=== PATIENT | male | born 1965 | race Two or more races ===

== ENCOUNTER 2017-09-06 21:10 | Emergency (ER) | payer OTHER ==
[~2017-09-06] VITALS: Ht 167.6 cm; Wt 84.8 kg
[2017-09-06 21:43] VITALS: BP 154/85
[2017-09-06] MEDS ORDERED: Tetracaine 0.5% Opth 4ml Soln ONE (21:50)
[2017-09-06] MEDS ORDERED: Fluorescein Strips LEFT EYE ONE (22:00)
[2017-09-06] MEDS ORDERED: Tetracaine 0.5% Opth 4ml Soln RIGHT EYE ONE (22:00)
[2017-09-06] MEDS ORDERED: Ketorolac 30mg Inj IM ONE (22:30)
[2017-09-07] MEDS ORDERED: ONDANSETRON ODT4 MG BC (00:48)
[2017-09-07] MEDS ORDERED: FIORINAL 50-321 EACH PO (00:48)
[2017-09-07 01:04] VITALS: BP 152/90
[2017-09-07 01:05] VITALS: BP 154/85
--- NOTE | 2017-09-07 05:45 | Emergency Room Report ---
History of Present Illness General Chief Complaint: Eye Problems Source: Patient Present Illness HPI 52-year-old male presents ED complaining of pain behind the left eye 3 days. Pain is throbbing, 8 out of 10, nonradiating. Notes blurry vision. Denies neck stiffness. Denies fevers or chills. Admits to nausea and vomiting. Son at bedside states that patient had similar episode of pain in March. Resolved on its own. Was seen by eye doctor stated that everything was okay. Patient was seen at urgent care earlier today was recommended to have CAT scan. No other aggravating relieving factors. Denies any other associated symptoms Allergies: Coded Allergies: No Known Allergies (Unverified , 09/06/17) Patient History Past Medical History: DM Past Surgical History: none Pertinent Family History: none Social History: Denies: smoking, alcohol use, drug use Immunizations: UTD Reviewed Nursing Documentation: PMH: Agreed; PSxH: Agreed Nursing Documentation-PMH Hx Diabetes: Yes Review of Systems All Other Systems: negative except mentioned in HPI Physical Exam Vital Signs Date Time Temp Pulse Resp B/P (MAP) Pulse Ox O2 Delivery O2 Flow Rate FiO2 09/06/17 21:21 98.6 96 18 154/85 98 Room Air 98.6 Sp02 EP Interpretation: reviewed, normal General Appearance: no apparent distress, alert, GCS 15, non-toxic Head: normocephalic, atraumatic Eyes: bilateral eye normal inspection, bilateral eye PERRL, bilateral eye visual acuity - 20/50 ENT: hearing grossly normal, normal pharynx, no angioedema, normal voice Neck: full range of motion, supple/symm/no masses Respiratory: chest non-tender, lungs clear, normal breath sounds, speaking full sentences Cardiovascular #1: regular rate, rhythm, no edema Cardiovascular #2: 2+ carotid (R), 2+ carotid (L), 2+ radial (R), 2+ radial (L) , 2+ dorsalis pedis (R), 2+ dorsalis pedis (L) Gastrointestinal: normal bowel sounds, non tender, soft, non-distended, no guarding, no rebound Rectal: deferred Genitourinary: normal inspection, no CVA tenderness Musculoskeletal: back normal, gait/station normal, normal range of motion, non- tender Neurologic: alert, oriented x3, responsive, negative restorer III-XII nml as tested, motor strength/tone normal, sensory intact, speech normal Psychiatric: judgement/insight normal, memory normal, mood/affect normal, no suicidal/homicidal ideation Reflexes: 3+ bicep (R), 3+ bicep (L), 3+ tricep (R), 3+ tricep (L), 3+ knee (R) , 3+ knee (L) Skin: normal color, no rash, warm/dry, well hydrated Lymphatic: no adenopathy Medical Decision Making Diagnostic Impression: Primary Impression: Headache Qualified Codes: R51 - Headache ER Course Hospital Course 52-year-old male presents ED complaining of pain behind left eye. Nausea and vomiting. Blurry vision. Differential diagnoses include:migraine, intracranial bleed, foreign body in eye Clinical course Patient placed on stretcher. After initial history, physical exam reveals male in no acute distress. There is no focal neurological deficits. Cranial nerves III through XII grossly intact. Visual acuity 20/50 in both eyes. Floor seen/ tetracaine revealed no acute abnormalities in the left eye. I ordered CT head and pain medications CT head shows no acute process. discussed findings with patient/son. Patient is safe for discharge. We'll prescribe Fioricet. Recommend follow-up with ophthalmology. Recommended patient seen neurology as outpatient for potential migraine Diagnosis - headache Stable and discharged to home with Rx Fioricet, zofran. Followup with PMD/ neurology/optho. Return to ED if symptoms recur or worsen CT/MRI/US Diagnostic Results CT/MRI/US Diagnostic Results : Imaging Test Ordered: CT Head Impression no acute process Last Vital Signs Date Time Temp Pulse Resp B/P (MAP) Pulse Ox O2 Delivery O2 Flow Rate FiO2 09/07/17 01:05 98.6 77 18 154/85 98 Room Air 98.6 Status: improved Disposition: HOME, SELF-CARE Condition: Stable Scripts Ondansetron Odt* (ZOFRAN ODT*) 4 Mg Tab.rapdis 4 MG BC EVERY 6 HOURS PRN for Nausea & Vomiting, #10 TAB 0 Refills Prov: Gene Cole MD 09/07/17 Aspirin/Caffeine/Butalbital (Fiorinal 50-325-40 mg Capsule) 1 Each Capsule 1 EA PO Q4HR, #20 CAP Prov: Gene Cole MD 09/07/17 Departure Forms: Return to Work Return to Work Date: Sep 09, 2017 Work Restrictions: None Patient Instructions: Migraine Headache, [id number] Gene Cole MD Sep 07, 2017 05:45
--- NOTE | 2017-09-07 13:15 | Diagnostic Imaging Report ---
Indication: Headache Technique: Continuous helical CT scanning of the head was performed without intravenous contrast material. Axial and coronal 5 mm sections were generated. Radiation dose was minimized using automated exposure control Dose: Total Dose Length Product - DLP 1372.[address] Dose Index - CTDIvol(s) 70.38 mGy. Comparison: none Findings: The ventricular system is normal in size and configuration. There is no shift of midline structures. No abnormal extra-axial fluid collections are noted. There is no evidence of intracerebral bleeding. No other abnormal high or low density areas are noted within the brain., Matute-white differentiation. Normal-sized ventricles and extra axial CSF spaces. Intact calvarium. Visualized orbits and sinuses are unremarkable Impression: Normal CT scan of the head without contrast material. This agrees with the preliminary interpretation provided overnight by [facility]eradiology service. The CT scanner at [facility] is accredited by the [employer] and the scans are performed using protocols designed to limit radiation exposure to as low as reasonably achievable to attain images of sufficient resolution adequate for diagnostic evaluation.
== END 2017-09-07 01:06 | disposition home or self-care (01) ==
LOC: EMR 21:50
DX: R51 Headache (principal); R11.2 Nausea with vomiting, unspecified; E11.9 Type 2 diabetes mellitus without complications
CPT/HCPCS: 70450; 96372; 99284; J1885